=== PATIENT | female | born 1965 | race Caucasian/White ===

== ENCOUNTER → 2020-03-28 | Outpatient (CLI) | payer MEDICARE, BC | LOC: M LABSMTC 09:56 | PROVIDERS: ATTEND Physician Assistant Surgical | DX: Z11.59 Encounter for screening for other viral diseases (principal) ==

== ENCOUNTER → 2020-10-21 | Outpatient (CLI) | payer MEDICARE, BC ==
[~2020-10-21] MED LIST: ASPI1CHW3 PO; ATOR40TA75 PO; CARV12.5 PO; CETI10CA13 PO; DOCU-129 PO; FLON1SPR; LOSA50TA88 PO; MELA5TAB37 PO; NEUR600T PO; OMEP40CA97 PO; VITA-243 PO; VITA500079 PO; ZOLO25TA PO
== END ==
LOC: M LABSMTC 09:53
PROVIDERS: ATTEND Anesthesiology
DX: Z01.812 Encounter for preprocedural laboratory examination (principal); Z20.828 Contact with and (suspected) exposure to other viral communicable diseases

== ENCOUNTER 2020-10-26 09:47 | Inpatient (IN) | payer MEDICARE, BC ==
--- NOTE | 2020-10-20 11:45 | HPE ---
HISTORY AND PHYSICAL DATE OF ADMISSION: 10/26/2020 ATTENDING PHYSICIAN: XU ANGLEA MD CHIEF COMPLAINT: Left knee pain and stiffness. HISTORY OF PRESENT ILLNESS: The patient is a pleasant 54-year-old female with progressively worsening left knee pain and stiffness. She has failed to improve with conservative measures. She continues to have symptoms with weightbearing activities and activities of daily living. She has consented for an elective left total knee arthroplasty with Dr. Angela for her continued symptoms. Medical optimization pending with Dr. Zaragoza. CURRENT MEDICATIONS: 1. Gabapentin 600 mg twice daily. 2. Carvedilol 12.5 mg twice daily. 3. Losartan 50 mg daily. 4. Lipitor 10 mg daily. 5. Omeprazole 40 mg daily. 6. Aspirin 325 mg daily. 7. Vitamin D3 5000 units daily. 8. Zoloft 25 mg daily. 9. Multivitamin daily. ALLERGIES: CODEINE. CHRONIC MEDICAL CONDITIONS: 1. Hypertension. 2. Hyperlipidemia. 3. Gastroesophageal reflux disease. 4. History of stroke. 5. Anxiety. 6. Depression. PAST SURGICAL HISTORY: 1. section. 2. Benign tumor excision. 3. Four back surgeries. 4. Right elbow tendon repair. SOCIAL HISTORY: The patient is a former smoker and occasionally consumes alcohol. REVIEW OF SYSTEMS: The patient denies fevers, chills, nausea, vomiting or diarrhea. She denies chest pain, shortness of breath, lightheadedness, dizziness or headaches. Denies any recent upper respiratory or urinary tract infection symptoms. The patient does continue to have left knee pain with weightbearing activities and activities of daily living. PHYSICAL EXAMINATION: GENERAL: Well-nourished, well-developed female in no apparent distress. She is alert, oriented and cooperative. Mood and affect are appropriate. VITAL SIGNS: Height 66 inches, weight 166.8 lb, temperature 97.1, respirations 20, heart rate 70, blood pressure 160/70. NECK: Supple without lymphadenopathy. HEART: Regular rate and rhythm. LUNGS: Clear to auscultation bilaterally. Breathing is regular and nonlabored. ABDOMEN: Soft and nontender. Bowel sounds are present. MUSCULOSKELETAL: Left knee exhibits no erythema, edema or ecchymosis. The skin is intact. There is tenderness along the medial and lateral joint lines. The patient can extend the knee to 2 degrees and flex to 95 degrees. Left lower extremity strength is 5/5. No hip irritability elicited with range of motion testing. The calf is soft and nontender without evidence of DVT. She is neurovascularly intact distally. She is walking with a limp, mainly left lower extremity. LABORATORY DATA: Chest x-ray: No acute pulmonary findings. No significant change. EKG: Sinus rhythm. Comprehensive metabolic profile: Sodium 142, potassium 3.8, chloride 109, carbon dioxide 28, anion gap 5, BUN 11, creatinine decreased at 0.58. GFR greater than 90. Glucose slightly elevated at 103. Calcium 9.3, total bilirubin 0.4, AST 18, ALT 22. Alkaline phosphatase 99, total protein 6.7, albumin 3.9, prothrombin time 10.9, INR 0.95. Complete blood count: WBC 9.7, RBC is 4.48, hemoglobin 13.8, hematocrit 39.7, platelets 199, erythrocyte sedimentation rate 10. IMPRESSION: Left knee osteoarthritis with x-rays notable for end stage degenerative changes. PLAN: Patient has consented for an elective left total knee arthroplasty with Dr. Angela for her continued symptoms. Medical optimization completed with Dr. aZragoza. The patient will be NPO after midnight the night prior to surgery unless instructed to take a medication with a small sip of water by her primary intensive care ambulance paramedic. She will follow her primary intensive care ambulance paramedic's the recommendations for how to take her daily medications and when to stop anticoagulants if applicable. The patient will use her Hibiclens and Bactroban as directed.
[2020-10-25] MEDS: fentaNYL 100 MCG/2 ML INJECTION (J3010) IV PRN (11:15)
[~2020-10-26] VITALS: Ht 167.6 cm; Wt 73.0 kg
[~2020-10-26 09:47] MED LIST changes: +LR 1,000 ML IV ONE
[2020-10-26] MEDS ORDERED: ceFAZolin 1GM VIAL (J0690 PER 500MG) As Ordered ONE (10:22)
[2020-10-26] MEDS ORDERED: BUPIVACAINE HCL 0.25% 10ML VIAL As Ordered ONE (10:22)
[2020-10-26] MEDS ORDERED: TRANEXAMIC ACID 100 MG/ML 10ML VIAL As Ordered ONE (10:22)
[2020-10-26] MEDS ORDERED: BUPIVACAINE LIPOSOME/PF 1.3% 20ML VIAL (13.3MG/ML)(EXPAREL)(C9290 PER1MG) As Ordered ONE (10:23)
[2020-10-26] MEDS ORDERED: EPINEPHrine INJ 1 MG/ML 1ML AMP As Ordered ONE (10:23)
[2020-10-26] MEDS ORDERED: LIDOCAINE 2% 100MG/5ML SDV (FOR ANES.) As Ordered ONE (10:34)
[2020-10-26] MEDS ORDERED: propofoL 200 MG/20 ML VIAL As Ordered ONE ×2 (10:34→12:44)
[2020-10-26] MEDS ORDERED: ceFAZolin 2 GM/D5W 50 ML IV BAG (J0690 PER 500MG) As Ordered ONE (10:41)
[2020-10-26] MEDS ORDERED: LIDOCAINE 1% MDV 20ML VIAL XX ONE (11:00)
[2020-10-26] MEDS ORDERED: ROPIvacaine 0.5% 30ML INJECTION (J2795 PER 1MG) XX ONE (11:00)
[2020-10-26] MEDS ORDERED: dexameTHASONE 10MG/1ML VIAL PRES.FREE (J1100 PER 1MG) XX ONE (11:00)
[2020-10-26] MEDS: MIDAZOLAM INJ 2MG/2ML VIAL (J2250 PER 1MG) IV PRN ×2 (11:15→11:30)
[2020-10-26] MEDS: fentaNYL 100 MCG/2 ML INJECTION (J3010) IV PRN (11:30)
--- NOTE | 2020-10-26 11:53 | IPN ---
PROGRESS NOTE DATE: 10/26/2020 The patient is seen and examined. She wishes to go ahead with a left total knee arthroplasty. She understands the nature of this and the risks of bleeding, infection, damage to nerves, vessels, persistent pain, wear, loosening, blood clots, medical problems, among others.
[2020-10-26] MEDS ORDERED: ceFAZolin 2 GM/D5W 50 ML IV BAG (J0690 PER 500MG) IV ONE (13:05)
[2020-10-26] MEDS ORDERED: ONDANSETRON 4MG/2ML VIAL As Ordered ONE (13:32)
[2020-10-26] MEDS ORDERED: MEPERIDINE INJ 25 MG/ML VIAL (J2175) As Ordered ONE (13:32)
--- NOTE | 2020-10-26 13:38 | REP ---
INDICATION: POST OP PLACEMENT- WILL CALL COMPARISON: None. TECHNIQUE: AP and cross-table lateral views. FINDINGS: Normal appearance and positioning to the femoral and tibial components. Overlying postsurgical changes and skin uriah noted. IMPRESSION: Status post left knee replacement. Satisfactory positioning. <Electronically signed by Morales Rivas > 10/26/20 [id number]
[2020-10-26] MEDS ORDERED: MEPERIDINE INJ 25 MG/ML VIAL (J2175) IV PRN (14:00)
[2020-10-26] MEDS ORDERED: LR 1,000 ML IV SCH ×2 (14:00→15:00)
[2020-10-26] MEDS ORDERED: fentaNYL 100 MCG/2 ML INJECTION (J3010) IV PRN (14:00)
[2020-10-26] MEDS ORDERED: ONDANSETRON 4MG/2ML VIAL IV PRN ×2 (14:00→15:00)
--- NOTE | 2020-10-26 14:00 | RO ---
OPERATIVE NOTE DATE OF OPERATION: 10/26/2020 PREOPERATIVE DIAGNOSIS: Left knee osteoarthritis. POSTOPERATIVE DIAGNOSIS: Left knee osteoarthritis. PROCEDURE: Left total knee arthroplasty using an Attune rotating platform, size 3 femur, posterior stabilized, size 4 tibial tray, 7 polyethylene, 32 patellar button. SURGEON: Lexx Angela M.D. ELECTROMECHANICAL EQUIPMENT TESTER: CHAU Collier ANESTHESIA: Spinal. ESTIMATED BLOOD LOSS: 50. COMPLICATIONS: None. PROCEDURE: The patient was taken to the operating room and placed in supine position after spinal anesthesia was induced. The left lower extremity was prepped and draped in the usual sterile fashion. A timeout was performed. A tourniquet was inflated. I then created a longitudinal incision over the anterior aspect of the knee. A medial parapatellar arthrotomy was performed per routine, everted the patella, removed some osteophytes from the femur, used a canal initiating reamer after having done a medial release and removed some of the fat pad. A canal initiating reamer was used on the femoral side followed by the intramedullary guide set at 5 degrees of valgus and a 9 mm cup. This was pinned in place and a distal femoral cut was made, protecting soft tissues. I did bring it back an extra 2 mm because of a flexure contracture. I then sized the femur to be a 4 initially and made the remaining cuts after securing the block, protecting soft tissues. We then prepared the tibial surface and the tibial alignment guide was placed in the appropriate amount of valgus and posterior slope. The proximal tibia was cut 4 mm off the low side which was the medial the side and we protected the PCL. I then used a medical records specialist, removed soft tissue and osteophytes from either side of the knee. The PCL still appeared to be intact. I then prepared the tibial surface, the tibial tray. A size 4 fit nicely. This was then pinned in place, drilled, broached and prior to this, I used spacer blocks and was a little unhappy with the flexion gap being a little tighter than the extension gap and we trialed the components at this point and still felt like it was a little tight in flexion so I downsized the femur to be a 3 by resecuring the 3 cutting block and making the remaining cuts again and this provided excellent balance in flexion and extension. I then replaced the trial components, put the knee through a range of motion. I was very pleased with stability and range of motion. The patellar was then freehand cut, removing about 6 or 7 mm of bone and sized to be a 32. The drill holes were placed and the patella tracked very nicely. Drill holes were placed in the end of the femur. The trial components were removed. The assistant designer prepared the bone cement in the modern technique. I irrigated the bony surfaces, injected the Exparel into the soft tissues by aspirating first. The surfaces were dried and the components were cemented in place. I removed all excellent bone cement, held the patella in place with a patellar clamp. I irrigated again copiously and then placed the TXA in the deep wound and then began closing the deep layer with #1 Vicryl suture and a running Stratafix. I removed the patellar clamp once the cement had hardened. I irrigated again the deep tissues and closed the remaining deep tissues with a running Stratafix. I then irrigated, closed the subcu with 2-0 Vicryl and the skin with uriah. The tourniquet had been deflated once the cement had hardened. Sterile dressing was applied. The skin had been closed with uriah. She was taken to recovery room in stable condition. There were no known complications. The plan will be routine postop. The assistant designer was instrumental in holding retractors and assisting in mixing the bone cement and assisting in wound closure.
[2020-10-26] MEDS: oxyCODONE 5MG TAB PO PRN ×2 (14:03→14:38)
[2020-10-26] MEDS ORDERED: ACETAMINOPHEN TAB 650MG DOSE (2X325MG) PO PRN (15:00)
[2020-10-26] MEDS ORDERED: MORPHINE 4 MG/ML 1ML VIAL/SYRINGE (J2270) IV PRN (15:00)
[2020-10-26] MEDS ORDERED: MORPHINE 2 MG/ML 1ML VIAL (J2270) IV PRN (15:00)
[2020-10-26] MEDS ORDERED: HYDROMORPHONE HCL 0.5 MG/ 0.5 ML SYRINGE (J1170 PER 1) As Ordered ONE (15:16)
[2020-10-26] MEDS: HYDROMORPHONE HCL 0.5 MG/ 0.5 ML SYRINGE (J1170 PER 1) IV PRN ×2 (15:17→15:31)
[2020-10-26 16:00] VITALS: BP 129/90
[2020-10-26 16:30] VITALS: BP 129/91
--- NOTE | 2020-10-26 16:52 | CR.PDOC ---
General Date of Consultation: Oct 26, 2020 Consultation Chief complaint: Presented to [facility] for an elective orthopedic procedure History of present illness: Patient is a 54-year-old female who presented to [facility] for an elective orthopedic procedure. She has received outpatient medical clearance from her primary care provider, Dr. Zaragoza. Hospital service was called for medical management postoperatively. Currently patient denies any chest pain, shortness breath, palpitations, cough, nausea, vomiting, abdominal pain, constipation, diarrhea, or urinary discomfort. She denies any recent fevers or chills. Reports that her weight and appetite have been fairly normal. 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 4 back surgeries Bilateral cataract surgeries Right elbow tendon repair Allergies: See below Medications: See below Family History: - No history of malignancies Social History: - Denies the use of illicit drugs; social alcohol use; quit smoking 2004 smoker of 35 years at one PPD - Denies recent travel or sick contacts - Lives with - Occupation; retired from [employer] Review of Systems: 10 point review of systems complete, all negative otherwise stated in HPI Physical exam: - Vitals: BP [134/81], HR [82], RR [16], Sat [96%RA], Temp [96.9F] - General: Lying in bed, Speaking in full sentences, AAOx3 - HEENT: NC, AT, PERRLA - CVS: RRR, +S1S2 - Lungs: Fair air entry bilaterally, No appreciable wheezing / rales / rhonchi - Abdomen: Soft, Non-distended, Non-tender - Extremities: No lower extremity edema, No calf tenderness, L leg in dressing - Neuro: No focal motor or sensory deficit - Skin: No visible rashes Labs: See below Imaging: See below EKG: See below Assessment and Plan: Elective total left knee arthroplasty (POD#0) - Presented to [facility] for elective orthopedic procedure - Patient has received outpatient medical clearance from her primary care provider - Pain control and regulation physical therapy at the direction of primary orthopedic team Hx of CVA (2014) - Has held ASA for the last 7 days HTN - BP well controlled - c/w Carvedilol and Losartan with hold parameters DLP - c/w Atorvastatin Mood disorder / Insomnia - c/w Sertraline and Melatonin Neuropathy - c/w Gabapentin Vitamin D deficiency - c/w Supplementation GERD - c/w Omeprazole DVT prophylaxis - As per primary orthopedic team Vital Signs/I&O Vital Signs Date Time Temp Pulse Resp B/P (MAP) Pulse Ox O2 Delivery O2 Flow Rate FiO2 10/26/20 16:30 96.6 90 18 129/91 (104) 94 Room Air 10/26/20 11:30 2 Allergies Coded Allergies: codeine (Verified Adverse Reaction, Mild, sweats, dizziness, 10/26/20) Home Medications Scheduled Ascorbic Acid (Vitamin C) 500 Mg Tablet, 1,000 MG PO DAILY, (Reported) Aspirin (Aspirin) 81 Mg Tab.chew, 81 MG PO DAILY, (Reported) Atorvastatin Calcium (Atorvastatin Calcium) 40 Mg Tablet, 40 MG PO QPM, (Reported) Carvedilol (Carvedilol) 12.5 Mg Tablet, 12.5 MG PO BID, (Reported) 12.5 mg in morning-1/2 tab in evening Cetirizine HCl (Allergy Relief) 10 Mg Capsule, 10 MG PO DAILY, (Reported) Cholecalciferol (Vitamin D3) (Vitamin D3) 125 Mcg (5000 Unit) Tab.rapdis, 125 MCG PO DAILY, (Reported) Docusate Sodium (Stool Softener) 100 Mg Capsule, 100 MG PO BID, (Reported) Fluticasone Propionate (Flonase Allergy Relief) 9.9 Ml Throckmorton.susp, 50 MCG NA DAILY, (Reported) Gabapentin (Neurontin) 600 Mg Tablet, 600 MG PO BID, (Reported) Losartan Potassium (Losartan Potassium) 50 Mg Tablet, 50 MG PO DAILY, (Reported) Melatonin (Melatonin) 5 Mg Tablet, 5 MG PO QHS, (Reported) Omeprazole (Omeprazole) 40 Mg Capsule.dr, 40 MG PO DAILY, (Reported) Sertraline Hcl (Zoloft) 25 Mg Tablet, 25 MG PO QHS, (Reported) ELLA KEMP MD Oct 26, 2020 16:52
[2020-10-26] MEDS ORDERED: RAMELTEON 8 MG TAB (ROZEREM) PO PRN (17:00)
[2020-10-26] MEDS: PERCOCET 5MG/325MG TAB PO PRN ×2 (17:19→21:51)
[2020-10-26 17:30] VITALS: BP 113/86
[2020-10-26] MEDS ORDERED: PERCOCET 5MG/325MG TAB PO PRN (17:30)
[2020-10-26 18:30] VITALS: BP 112/85
[2020-10-26 19:30] VITALS: BP 109/82
[2020-10-26 20:30] VITALS: BP 127/83
[2020-10-26] MEDS: ceFAZolin SOD 2 GM in IV 1 EA IV SCH (21:49)
[2020-10-26] MEDS: GABAPENTIN 300 MG CAP PO SCH (21:49)
[2020-10-26] MEDS: CARVedilol 6.25 MG TAB PO SCH (21:50)
[2020-10-26] MEDS: ATORVASTATIN 20 MG TAB PO SCH (21:50)
[2020-10-26] MEDS: SERTRALINE HCL 25 MG TABLET PO SCH (21:51)
[2020-10-26] MEDS: DOCUSATE SODIUM 100MG CAPSULE PO SCH (21:51)
[2020-10-27 02:00] VITALS: BP 125/83
[2020-10-27] MEDS: PERCOCET 5MG/325MG TAB PO PRN ×4 (03:16→21:39)
[2020-10-27] MEDS: ceFAZolin SOD 2 GM in IV 1 EA IV SCH (03:17)
[2020-10-27 06:00] VITALS: BP 122/84
[2020-10-27 06:20] LABS: BASO % 0.1 % (0.0-1.0); HEMATOCRIT 35.7 % (36.0-47.0); HEMOGLOBIN 11.6 g/dl (12.0-15.5); LYMPH # 1.7 10^3/uL (1.5-5.0); LYMPH % 9.7 % (24.0-44.0); MEAN CORPUSCULAR HEMOGLOBIN 30.4 pg (27.0-33.0); MEAN CORPUSCULAR HGB CONC 32.5 g/dl (32.0-36.5); MEAN CORPUSCULAR VOLUME 93.5 fl (80.0-96.0); MONO # 1.1 10^3/uL (0.0-0.8); MONO % 6.2 % (0.0-5.0); NEUTROPHILS # 14.4 10^3/uL (1.5-8.5); NEUTROPHILS % 83.4 % (36.0-66.0); PLATELET COUNT, AUTOMATED 194 10^3/uL (150-450); RED BLOOD COUNT 3.82 10^6/uL (4.00-5.40); WHITE BLOOD COUNT 17.3 10^3/uL (4.0-10.0)
[2020-10-27] MEDS ORDERED: XARE10TA PO (06:51)
[2020-10-27] MEDS ORDERED: PERC5TAB12 PO (06:51)
[2020-10-27 07:05] LABS: BLOOD UREA NITROGEN 16 MG/DL (7-18); CALCIUM LEVEL 9.2 MG/DL (8.5-10.1); CARBON DIOXIDE LEVEL 27 MEQ/L (21-32); CHLORIDE LEVEL 102 MEQ/L (98-107); CREATININE FOR GFR 0.74 MG/DL (0.55-1.30); GLOMERULAR FILTRATION RATE > 60.0 (>51); GLUCOSE, FASTING 207 MG/DL (70-100); POTASSIUM SERUM 3.9 MEQ/L (3.5-5.1); SODIUM LEVEL 137 MEQ/L (136-145)
[2020-10-27] MEDS: FLUTICASONE PROP 0.05% NASAL SPRAY 16 GM (FLONASE) SCH (09:00)
[2020-10-27] MEDS: MIRALAX *UNIT DOSE* 17GM PACKET PO SCH (09:14)
[2020-10-27] MEDS: MOM 30ML SUSPENSION UDC PO SCH (09:14)
[2020-10-27] MEDS: GABAPENTIN 300 MG CAP PO SCH ×2 (09:14→21:38)
[2020-10-27] MEDS: VITAMIN D 1,000 INTERNATIONAL UNITS TABLET PO SCH (09:15)
[2020-10-27] MEDS: DOCUSATE SODIUM 100MG CAPSULE PO SCH ×2 (09:15→21:38)
[2020-10-27] MEDS: ASCORBIC ACID 500 MG TAB PO SCH (09:16)
[2020-10-27] MEDS: OMEPRAZOLE 20 MG CAP PO SCH (09:16)
[2020-10-27] MEDS: LOSARTAN 50MG TABLET PO SCH (09:17)
[2020-10-27] MEDS: CARVedilol 12.5 MG TAB PO SCH (09:17)
[2020-10-27 10:00] VITALS: BP 131/86
[2020-10-27] MEDS ORDERED: MORPHINE 15 MG SA TAB PO ONE (11:00)
[2020-10-27 14:00] VITALS: BP 128/86
[2020-10-27] MEDS ORDERED: KETOROLAC 30 MG/ML 1ML VIAL IV ONE (14:30)
[2020-10-27] MEDS: CYCLOBENZAPRINE 10MG TABLET PO SCH ×2 (16:02→21:38)
[2020-10-27] MEDS ORDERED: RIVAROXABAN 10 MG TAB (XARELTO) PO SCH (18:00)
--- NOTE | 2020-10-27 19:40 | IPNPDOC ---
Text Note Date of Service The patient was seen on 10/27/20. NOTE SUbjective: -Doing well, no acute complaints Objective: Physical exam: Vitals: see below General: NAD, Speaking in full sentences, AAOx3 HEENT: NC, AT, PERRLA CVS: RRR, +S1S2 Lungs: Fair air entry bilaterally, No appreciable wheezing / rales / rhonchi Abdomen: Soft, Non-distended, Non-tender Extremities: No lower extremity edema, No calf tenderness, L knee with dressing Neuro: No focal motor or sensory deficit Psych: AOx3 Labs: Reviewed. WBC 17.3 Assessment and Plan: 54 yo W admitted for observation s/p elective L knee arthroplasty, doing well and anticipating likely home discharge today after PT clearance. Elective total left knee arthroplasty (POD#1) - Patient had received outpatient medical clearance from her primary care provider - Pain control, DVT ppx and physical therapy at the direction of primary orthopedic team Leukocytosis: reactive s/p surgery without any signs of potential infection at this time Hx of CVA (2014) - Held ASA for the last 7 days as directed HTN - BP well controlled - c/w Carvedilol and Losartan with hold parameters DLP - c/w Atorvastatin Mood disorder / Insomnia - c/w Sertraline and Melatonin Neuropathy - c/w Gabapentin Vitamin D deficiency - c/w Supplementation GERD - c/w Omeprazole DVT prophylaxis - As per primary orthopedic team Dispo: per primary orthopedic team, otherwise medically cleared for potential discharge from the hospital. VS,Fishbone, I+O VS, Fishbone, I+O Laboratory Tests 10/27/20 05:57 Vital Signs Date Time Temp Pulse Resp B/P (MAP) Pulse Ox O2 Delivery O2 Flow Rate FiO2 10/27/20 09:17 124/84 10/27/20 09:17 90 10/27/20 09:15 18 10/27/20 06:00 97.9 94 Room Air 10/26/20 11:30 2 I&O- Last 24 Hours up to 6 AM 10/27/20 05:59 Intake Total 2445 ml Output Total 1050 ml Balance 1395 ml HOLGER MEI MD Oct 27, 2020 09:33
[2020-10-27] MEDS: CARVedilol 6.25 MG TAB PO SCH (21:41)
[2020-10-27] MEDS: SERTRALINE HCL 25 MG TABLET PO SCH (21:42)
[2020-10-27] MEDS: ATORVASTATIN 20 MG TAB PO SCH (21:42)
[2020-10-27] MEDS: MORPHINE 15 MG SA TAB PO SCH (21:42)
[2020-10-27 22:00] VITALS: BP 119/77
[2020-10-28] MEDS: PERCOCET 5MG/325MG TAB PO PRN ×2 (01:46→06:15)
[2020-10-28 06:00] VITALS: BP 122/87
[2020-10-28] MEDS: CYCLOBENZAPRINE 10MG TABLET PO SCH (06:14)
[2020-10-28] MEDS ORDERED: MS C15TA8 PO (06:58)
[2020-10-28] MEDS ORDERED: CYCL-707 PO (06:58)
[2020-10-28 07:20] LABS: BASO % 0.3 % (0.0-1.0); EOS # 0.2 10^3/uL (0.0-0.5); EOS % 1.4 % (0.0-3.0); HEMATOCRIT 37.1 % (36.0-47.0); HEMOGLOBIN 11.8 g/dl (12.0-15.5); LYMPH # 3.6 10^3/uL (1.5-5.0); LYMPH % 29.8 % (24.0-44.0); MEAN CORPUSCULAR HEMOGLOBIN 30.9 pg (27.0-33.0); MEAN CORPUSCULAR HGB CONC 31.8 g/dl (32.0-36.5); MEAN CORPUSCULAR VOLUME 97.1 fl (80.0-96.0); MONO # 0.9 10^3/uL (0.0-0.8); MONO % 7.4 % (0.0-5.0); NEUTROPHILS # 7.3 10^3/uL (1.5-8.5); NEUTROPHILS % 60.7 % (36.0-66.0); PLATELET COUNT, AUTOMATED 183 10^3/uL (150-450); RED BLOOD COUNT 3.82 10^6/uL (4.00-5.40); WHITE BLOOD COUNT 12.1 10^3/uL (4.0-10.0)
[2020-10-28 07:53] LABS: BLOOD UREA NITROGEN 17 MG/DL (7-18); CALCIUM LEVEL 8.9 MG/DL (8.5-10.1); CARBON DIOXIDE LEVEL 32 MEQ/L (21-32); CHLORIDE LEVEL 104 MEQ/L (98-107); CREATININE FOR GFR 0.71 MG/DL (0.55-1.30); GLOMERULAR FILTRATION RATE > 60.0 (>51); GLUCOSE, FASTING 108 MG/DL (70-100); MAGNESIUM LEVEL 2.3 MG/DL (1.8-2.4); SODIUM LEVEL 139 MEQ/L (136-145)
[2020-10-28] MEDS: GABAPENTIN 300 MG CAP PO SCH (08:59)
[2020-10-28] MEDS: ASCORBIC ACID 500 MG TAB PO SCH (08:59)
[2020-10-28] MEDS: VITAMIN D 1,000 INTERNATIONAL UNITS TABLET PO SCH (08:59)
[2020-10-28] MEDS: DOCUSATE SODIUM 100MG CAPSULE PO SCH (08:59)
[2020-10-28] MEDS: MOM 30ML SUSPENSION UDC PO SCH (08:59)
[2020-10-28 09:00] VITALS: BP 122/87
[2020-10-28] MEDS: CARVedilol 12.5 MG TAB PO SCH (09:00)
[2020-10-28] MEDS: LOSARTAN 50MG TABLET PO SCH (09:00)
[2020-10-28] MEDS: OMEPRAZOLE 20 MG CAP PO SCH (09:00)
[2020-10-28] MEDS: MIRALAX *UNIT DOSE* 17GM PACKET PO SCH (09:00)
[2020-10-28] MEDS: FLUTICASONE PROP 0.05% NASAL SPRAY 16 GM (FLONASE) SCH (09:00)
[2020-10-28] MEDS: MORPHINE 15 MG SA TAB PO SCH (09:01)
--- NOTE | 2020-10-28 16:50 | IPNPDOC ---
Text Note Date of Service The patient was seen on 10/28/20. NOTE Subjective: -Doing well, no acute complaints Objective: Physical exam: Vitals: see below General: NAD, Speaking in full sentences, AAOx3 HEENT: NC, AT, PERRLA CVS: RRR, +S1S2 Lungs: Fair air entry bilaterally, No appreciable wheezing / rales / rhonchi Abdomen: Soft, Non-distended, Non-tender Extremities: No lower extremity edema, No calf tenderness, L knee with dressing Neuro: No focal motor or sensory deficit Psych: AOx3 Labs: Reviewed. Assessment and Plan: 54 yo W admitted for observation s/p elective L knee arthroplasty, doing well and being discharged home today. Elective total left knee arthroplasty (POD#2) - Patient had received outpatient medical clearance from her primary care provider - Pain control, DVT ppx and physical therapy at the direction of primary orthopedic team Leukocytosis: reactive s/p surgery without any signs of potential infection at this time Hx of CVA (2014) - Held ASA for the last 7 days as directed HTN - BP well controlled - c/w Carvedilol and Losartan with hold parameters DLP - c/w Atorvastatin Mood disorder / Insomnia - c/w Sertraline and Melatonin Neuropathy - c/w Gabapentin Vitamin D deficiency - c/w Supplementation GERD - c/w Omeprazole DVT prophylaxis - As per primary orthopedic team Dispo: per primary orthopedic team, otherwise medically cleared for discharge from the hospital. VS,Fishbone, I+O VS, Fishbone, I+O Laboratory Tests 10/28/20 06:59 Vital Signs Date Time Temp Pulse Resp B/P (MAP) Pulse Ox O2 Delivery O2 Flow Rate FiO2 10/28/20 09:01 18 10/28/20 09:00 122/87 10/28/20 09:00 81 10/28/20 06:00 97.5 97 Room Air 10/26/20 11:30 2 I&O- Last 24 Hours up to 6 AM 10/28/20 06:00 Intake Total 1620 ml Output Total 900 ml Balance 720 ml HOLGER MEI MD Oct 28, 2020 16:50
== END 2020-10-28 12:10 | disposition home or self-care (01) | DRG 470 ==
LOC: M OR 09:47 → M MS5PR 15:45
PROVIDERS: ADMIT Orthopaedic Surgery; ATTEND Orthopaedic Surgery
PROC: 0SRD0J9 Replacement of Left Knee Joint with Synthetic Substitute, Cemented, Open Approach (ICD-10-PCS; principal; 2020-10-26 13:45)
DX: M17.12 Unilateral primary osteoarthritis, left knee (principal); Z79.899 Other long term (current) drug therapy; Z79.82 Long term (current) use of aspirin; I10 Essential (primary) hypertension; E78.5 Hyperlipidemia, unspecified; K21.9 Gastro-esophageal reflux disease without esophagitis; Z86.73 Personal history of transient ischemic attack (TIA), and cerebral infarction without residual deficits; Z87.891 Personal history of nicotine dependence; E55.9 Vitamin D deficiency, unspecified; D72.829 Elevated white blood cell count, unspecified; G47.00 Insomnia, unspecified; G62.9 Polyneuropathy, unspecified